=== PATIENT | female | born 1995 | race Caucasian/White ===

== ENCOUNTER → 2022-09-08 | Outpatient (CLI) | payer OTHER, SELFPAY ==
[2022-09-08 10:59] LABS: Absolute Lymphocyte Count 1.88 X10^3/uL (0.83-4.51); Absolute Neutrophil Count 5.3 X10^3/uL (2.0-7.7); Basophil# 0.02 X10^3/uL; Basophil% 0.3 % (0-1); Eosinophil# 0.08 X10^3/uL; Hematocrit 39.6 % (37-47); Hemoglobin 13.7 g/dL (12.0-15.0); Lymphocyte # 1.88 X10^3/ul (0.83-4.51); Lymphocyte % 24.6 % (19-41); Mean Corp Hgb Conc 34.6 g/dL (32-36); Mean Corpuscular Hgb 28.8 pg (27.0-32.0); Mean Corpuscular Volume 83.4 fL (81-99); Mean Platelet Vol. 9.2 fl (6.2-12.0); Monocyte# 0.38 X10^3/uL; NRBC Flagged by Analyzer 0 % (0-5); Neutrophil # 5.25 X10^3/uL (2.7-7.7); Neutrophil % 68.7 % (47-70); Platelet Count 266 K/mm3 (150-450); RBC Distribution Width CV 12.8 % (11.6-14.6); Red Blood Count 4.75 M/mm3 (4.2-5.4); White Blood Count 7.6 K/mm3 (4.4-11.0)
[2022-09-08 11:28] LABS: Glucose Challenge Gest 1H 50g 132 mg/dL (70-140)
[2022-09-08 12:08] LABS: HIV - WCH Non-Reactive (Nonreactive); Hepatitis B Surface Antigen Non-Reactive (Nonreactive); Hepatitis C Antibody Non-Reactive (Nonreactive); Rubella IgG Reactive (Nonreactive); Syphilis Antibodies Non-reactive
[2022-09-09 22:07] LABS: Chlamydia By Nucleic Acid AMP Negative (Negative)
[2022-09-09 23:14] LABS: Gonococcus By Nucleic Acid AMP Negative (Negative)
== END | disposition home or self-care (01) ==
PROVIDERS: Referring Provider Obstetrics & Gynecology; Visit Provider Obstetrics & Gynecology
DX: O09.90 Supervision of high risk pregnancy, unspecified, unspecified trimester (principal)
CPT/HCPCS: 36415; 82950; 85025; 86703; 86762; 86780; 86803; 86850; 86900; 86901; 87086; 87340; 87491; 87591

== ENCOUNTER → 2022-09-20 | Outpatient (CLI) | payer OTHER, SELFPAY ==
[2023-01-02 11:05] LABS: NATERA MAILED SPECIMEN
== END | disposition home or self-care (01) ==
LOC: PAVLAB 11:23
PROVIDERS: Referring Provider Obstetrics & Gynecology; Visit Provider Obstetrics & Gynecology
DX: Z34.81 Encounter for supervision of other normal pregnancy, first trimester (principal)

== ENCOUNTER → 2022-12-14 | Outpatient (CLI) | payer OTHER, SELFPAY | END | disposition home or self-care (01) | PROVIDERS: Referring Provider Advanced Practice Midwife; Visit Provider Advanced Practice Midwife | DX: Z34.90 Encounter for supervision of normal pregnancy, unspecified, unspecified trimester (principal); Z3A.00 Weeks of gestation of pregnancy not specified | CPT/HCPCS: 36415 ==

== ENCOUNTER → 2023-01-14 | Outpatient (CLI) | payer OTHER, SELFPAY ==
[2023-01-14 11:17] LABS: Absolute Lymphocyte Count 1.98 X10^3/uL (0.83-4.51); Absolute Neutrophil Count 7.5 X10^3/uL (2.0-7.7); Basophil# 0.02 X10^3/uL; Basophil% 0.2 % (0-1); Eosinophil# 0.08 X10^3/uL; Eosinophils% 0.8 % (0-5); Hematocrit 40.4 % (37-47); Hemoglobin 13.2 g/dL (12.0-15.0); Lymphocyte # 1.98 X10^3/ul (0.83-4.51); Lymphocyte % 19.6 % (19-41); Mean Corp Hgb Conc 32.7 g/dL (32-36); Mean Corpuscular Hgb 28.1 pg (27.0-32.0); Mean Platelet Vol. 9.5 fl (6.2-12.0); Monocyte# 0.37 X10^3/uL; Monocyte% 3.7 % (0-10); NRBC Flagged by Analyzer 0 % (0-5); Neutrophil # 7.51 X10^3/uL (2.7-7.7); Neutrophil % 74.5 % (47-70); Platelet Count 257 K/mm3 (150-450); RBC Distribution Width CV 13.4 % (11.6-14.6); RBC Distribution Width SD 41.7 fl (35.1-43.9); White Blood Count 10.1 K/mm3 (4.4-11.0)
[2023-01-14 11:38] LABS: Glucose Challenge Gest 1H 50g 160 mg/dL (70-140)
[2023-01-14 12:12] LABS: HIV - WCH Non-Reactive (Nonreactive); Syphilis Antibodies Non-reactive
== END | disposition home or self-care (01) ==
PROVIDERS: Referring Provider Advanced Practice Midwife; Visit Provider Advanced Practice Midwife
DX: O09.90 Supervision of high risk pregnancy, unspecified, unspecified trimester (principal); Z3A.00 Weeks of gestation of pregnancy not specified
CPT/HCPCS: 36415; 82950; 85025; 86703; 86780

== ENCOUNTER 2023-02-01 09:39 | Outpatient (RCR) | payer OTHER, SELFPAY | END 2023-02-07 23:59 | LOC: DC 09:39 | PROVIDERS: Referring Provider Advanced Practice Midwife; Visit Provider Advanced Practice Midwife | DX: Z71.3 Dietary counseling and surveillance (principal); O24.419 Gestational diabetes mellitus in pregnancy, unspecified control; Z3A.00 Weeks of gestation of pregnancy not specified | CPT/HCPCS: 97802 ==

== ENCOUNTER 2023-02-17 10:30 | Outpatient (RCR) | payer OTHER, SELFPAY | END 2023-03-10 23:59 | LOC: DC 10:30 | PROVIDERS: Referring Provider Advanced Practice Midwife; Visit Provider Advanced Practice Midwife | DX: Z71.3 Dietary counseling and surveillance (principal); O24.419 Gestational diabetes mellitus in pregnancy, unspecified control | CPT/HCPCS: 97803 ==

== ENCOUNTER → 2023-03-16 | Outpatient (CLI) | payer OTHER, SELFPAY | END | disposition home or self-care (01) | PROVIDERS: Visit Provider Obstetrics & Gynecology | DX: O09.90 Supervision of high risk pregnancy, unspecified, unspecified trimester (principal); Z3A.00 Weeks of gestation of pregnancy not specified | CPT/HCPCS: 87081 ==

== ENCOUNTER 2023-04-03 19:16 | Inpatient (IN) | payer OTHER, SELFPAY ==
[2023-01-18 07:38] LABS: Glucose GTT-Gestation. Fasting 100 mg/dL (<105)
[2023-01-18 09:12] LABS: Glucose GTT-Gestational 1 Hr 180 mg/dL (<190)
[2023-01-18 09:30] LABS: Glucose GTT-Gestational 2 Hr 139 mg/dL (<165)
[2023-01-18 11:35] LABS: Glucose GTT-Gestational 3 Hr 112 L (<145)
[2023-04-03 19:35] VITALS: TEMP 37.1
[2023-04-03 19:40] VITALS: PULSE 82; O2SAT 98
[2023-04-03 19:42] VITALS: BP 129/73; PULSE 93
[2023-04-03 19:45] VITALS: BMI 41.6
[2023-04-03 19:57] LABS: Absolute Lymphocyte Count 3.08 X10^3/uL (0.83-4.51); Absolute Neutrophil Count 6.6 X10^3/uL (2.0-7.7); Basophil# 0.03 X10^3/uL; Basophil% 0.3 % (0-1); Eosinophil# 0.09 X10^3/uL; Eosinophils% 0.9 % (0-5); Hemoglobin 12.3 g/dL (12.0-15.0); Lymphocyte # 3.08 X10^3/ul (0.83-4.51); Lymphocyte % 29.1 % (19-41); Mean Corp Hgb Conc 33.2 g/dL (32-36); Mean Corpuscular Hgb 27.9 pg (27.0-32.0); Mean Corpuscular Volume 83.9 fL (81-99); Mean Platelet Vol. 9.8 fl (6.2-12.0); Monocyte# 0.74 X10^3/uL; NRBC Flagged by Analyzer 0 % (0-5); Neutrophil # 6.58 X10^3/uL (2.7-7.7); Neutrophil % 62.2 % (47-70); Platelet Count 254 K/mm3 (150-450); RBC Distribution Width CV 13.1 % (11.6-14.6); RBC Distribution Width SD 39.6 fl (35.1-43.9); Red Blood Count 4.41 M/mm3 (4.2-5.4); White Blood Count 10.6 K/mm3 (4.4-11.0)
[2023-04-03 20:31] LABS: Syphilis Antibodies Non-reactive
[2023-04-03 21:03] LABS: Bedside Glucose 90 mg/dL (74-106)
[2023-04-03] MEDS: miSOPROStol 25 MCG TABLET PO (21:14)
[2023-04-03] MEDS: metFORMIN HCl 1,000 MG Tablet 1000 MG PO (21:14)
[2023-04-03 21:44] LABS: Bedside Glucose 92 mg/dL (74-106)
[2023-04-03 23:17] VITALS: TEMP 36.6; O2SAT 98
[2023-04-03 23:18] VITALS: BP 105/51; PULSE 66
[2023-04-04] VITALS (41 sets, daily range): BP systolic 99–148; BP diastolic 50–84; PULSE 65–191; RESP 16; TEMP 36.3–37.2; O2SAT 78–100
[2023-04-04] MEDS: miSOPROStol 50 MCG TABLET PO ×2 (01:12→07:04)
[2023-04-04 01:45] LABS: Bedside Glucose 84 mg/dL (74-106)
[2023-04-04 05:45] LABS: Bedside Glucose 71 mg/dL (74-106)
--- NOTE | 2023-04-04 08:19 | HP.PCM.OB_ITS ---
HPI - General General Date of Admission: 04/03/23 HPI Narrative NEFTALI GRECO, is a 28 F who presents at 39 weeks 1 day for IOL for metformin controlled GDM. course otherwise overall uncomplicated. growth scan on 03/18/2023 demonstrated EFW 2783g 35% with glucose in good control following. Maternal Data Information DENA Calculator Estimated Delivery Date Method Current WG Current Estimate 04/10/23 LMP (Certain) 39w 1d Final DENA: 04/10/23 Final DENA Source: LMP Gestational age: 39.1 PFSH PFSH Medical History Anxiety Home Medications prenat.vits,shaina,lrv-szml-fcjka 1 tab PO DAILY 09/01/22 [History Last Taken 03/30/23] blood sugar diagnostic (Blood Glucose Test strips) #120 ea 01/19/23 [Rx Last Taken Unknown] blood-glucose meter #1 ea 01/19/23 [Rx Last Taken Unknown] lancets #200 ea 01/19/23 [Rx Last Taken Unknown] metformin 1,000 mg tablet 1,000 mg PO DAILY Gestational 02/24/23 [History Last Taken 04/02/23] Adacel(Tdap Adolesn/Adult)(PF) 2 Lf-(2.5-5-3-5)-5 Lf/0.5 mL IM syringe (diph,pertuss(acel),tet vac(PF)) 0.5 ml IM ONCE #0.5 mL 03/03/23 [Clinic Last Taken Unknown] metformin 500 mg tablet 500 mg PO ONCE Gestation diabetes 03/07/23 [History Last Taken Unknown] Allergy/AdvReac Type Severity Reaction Status Date / Time No Known Allergies Allergy Verified 04/03/23 20:12 Family History Father Heart disease Hypertension Diabetes type 2 Mother Cancer, Onset Age: 58 uterine genetic screening done Surgical History History of tonsillectomy S/P foot surgery, left Social History adopted: No household members: spouse housing: house current occupational status: employed 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 pets and animals: Yes ( doing litter box) pets and animals: cat(s) and dog(s) history of recent travel: No sexually active: Yes Smoking Status: Never smoker Electronic Cigarette Use: not used second hand exposure: No alcohol intake: never substance use type: does not use well-balanced diet: daily or most days caffeine: Yes Type: coffee Number of servings: 2 eating out: 1-3 times/week seatbelt use: always do you feel safe at home: Yes 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 History 1 Elective abortions Hx Para 0 Spontaneous abortions Hx # Term Pregnancies Ectopic pregnancies Hx # Pregnancies Multiple births # of living children Visit Details Expected Delivery Route/Plan Labor Preferences- CB/BF classes: [] labor support person: [] labor intervention preferences: [] pain management options preferred: [] cut cord/dad catch: [] : [] PP control planned: [] discussed possible routes of delivery and associated risks: [] special requests: [] Plans Covid status: discussed Flu vaccine: discussed Tdap vaccine: [] Rhogam: [] LARC form signed: done Problem list reviewed and updated with the most current plan of care details and appropriate orders placed. Relevant counseling for the gestational age provided. Continue routine care and follow up unless otherwise noted in visit notes/problem list details OB Flowsheet Initial Weight: Not Recorded Date -?-?-?-?-?-?-?-?-?-?-?-?- EGA Weight BP Urine Prot -?-?-?--?-?-?-?-?-?-?-?-?- Glucose FHR FuHt Pres Dilation -?-?-?-?-?-?-?-?-?--?-?-?- Effaced St Visit Note 09/08/22 -?-?-?-?-?-?-?-?-?-?-?-?- 9w 3d 261 lb 6 oz 135/78 -?-?-?-?-?-?-?-?-?-?-?-?- 185 -?-?-?-?-?-?-?-?-?-?-?-?- JV- single live IUP measuring 9 weeks 5 days and consistent with LMP. Desires NIPT. needs early glucola. 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 10/04/22 -?-?-?-?-?-?-?-?-?-?-?-?- 13w 1d 256 lb 4 oz 103/61 Nega tive -?-?-?-?-?-?-?-?-?-?-?-?- Negative 170 -?-?-?-?-?-?-?-?-?-?-?-?- SM- no vb crampi ng 11/03/22 -?-?-?-?-?-?-?-?-?-?-?-?- 17w 3d 257 lb 112/66 Negative -?-?-?-?-?-?-?-?-?-?-?-?- Negative 166 -?-?-?-?-?-?-?-?-?-?-?-?- MH-no VB. US is next week. Very tearful:mom with recent dx of bone mets from prior uterine CA. Admitted [facility]. 11/16/22 -?-?-?-?-?-?-?-?-?-?-?-?- 19w 2d 254 lb 8 oz 113/75 Trac e -?-?-?-?-?-?-?-?-?-?-?-?- Negative 160 -?-?-?-?-?-?-?-?-?-?-?-?- KW-possible flut ters. no cramping/vb. Anatomy US today KW-possible flutters. no scrap yard worker mping/vb. Anatomy US today. doing ok with moms Dx of cancer. still tearful but overall doing ok. 11/30/22 -?-?-?-?-?-?-?-?-?-?-?-?- 21w 2d 251 lb 2 oz 98/73 Trac e -?-?-?-?-?-?-?-?-?-?-?-?- Negative 125 21 -?-?-?-?-?-?-?-?-?-?-?-?- kw- flutters. no cramping/vb. follow up u/s completed today. discussed AFP. undecided. mom passed last week from uterine CA. follow up in 2 weeks to check in 12/14/22 -?-?-?-?-?-?-?-?-?--?-?-?- 23w 2d 252 lb 8 oz 106/74 -?-?-?-?-?-?-?-?-?-?-?-?- 150 -?-?-?-?-?-?-?-?-?-?-?-?- KW-+FM. No cramp ing/vb/lof. doing well emotionally. 28 week labs discussed. AFP ordered. 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 BS reviewed. Fast[place] elevated(88-114). PP under 120. Consult with JV-refer to Dr. Muñoz. Tdap and Larc done KW-+FM, no lof/vb/ctx. BS re viewed. [place] elevated(88-114). PP under 120. C onsult with JV-refer to Dr. Muñoz. Tdap next visit (office out today) Larc done. 32 & 36 week growth US ordered 02/11/23 -?-?-?-?-?-?-?-?-?-?-?-?- 31w 5d 257 lb 6.4 oz 106/70 Ne gative -?-?-?-?-?-?-?-?-?-?-?-?- Negative 135 -?-?-?-?-?-?-?-?-?-?-?-?- started metformi n 500mg tuesday for fasting 96-97. LC-started metformin 500mg m onday for fasting 96-97. LC-started metformin 500mg m onday for fasting 96-97. taking pp 1-2 times a day working with cargo services coordinator. reactive nst today. 02/16/23 -?-?-?-?-?-?-?-?-?-?-?-?- 32w 3d 258 lb 117/80 Negative -?-?-?-?-?-?-?-?-?-?-?-?- Negative 150 -?-?-?-?-?-?-?-?-?-?-?-?- JV- nst only nimisha ctive. wants to go to [place] for bpps if possible with mfm. on metformin 1000 hs 02/24/23 -?-?-?-?-?-?-?-?-?-?-?-?- 33w 4d 262 lb 6 oz 116/75 Nega tive -?-?-?-?-?-?-?-?-?-?-?-?- Negative 140 -?-?-?-?-?-?-?-?-?-?-?-?- SM- no vb lof go od fm no regular ctx discussed twice weekly testing, 02/28/23 -?-?-?-?-?-?-?-?-?-?-?-?- 34w 1d 261 lb 8 oz 122/74 Nega tive -?-?-?-?-?-?-?-?-?-?-?-?- Negative 150 -?-?-?-?-?-?-?-?-?-?-?-?- MH-NST only reac tive 03/07/23 -?-?--?-?-?-?-?-?-?-?-?-?- 35w 1d 264 lb 6 oz 127/70 Nega tive -?-?-?-?-?-?-?-?-?-?-?-?- Negative 150 -?-?-?-?-?-?-?-?-?-?-?-?- MH-NST only reac tive 03/10/23 -?-?-?-?-?-?-?-?-?-?-?-?- 35w 4d 262 lb 8 oz 122/80 -?-?-?-?-?-?-?-?-?-?-?-?- 150 35 -?-?-?-?-?-?-?-?-?-?-?-?- JV- nst reactive . fasting glucose levels are 80's-90's on metformin. 2 hr pp normal. plan 39 week IOL. JV- nst reactive. fasting gl ucose levels are 80's-90's on metformin. 2 hr pp normal. plan 39 week IOL. growth scan next week 03/16/23 -?-?-?-?-?-?-?-?-?-?-?-?- 36w 3d 265 lb 4 oz 127/78 Nega tive -?-?-?-?-?-?-?-?-?-?-?-?- Negative 150 36 Cephalic 0 -?-?-?-?-?-?-?-?-?-?-?-?- 50 -3 JV- reacti ve nst. glucose log reviewed and normal. gbs collected. 03/18/23 -?-?-?-?-?-?-?-?-?-?-?-?- 36w 5d 266 lb 4 oz 101/59 Nega tive -?-?-?-?-?-?-?-?-?-?-?-?- Negative 130 -?-?-?-?-?-?-?-?-?-?-?-?- LC- reactive nst . glucose log reviewed. 03/21/23 -?-?-?-?-?-?-?-?-?-?-?-?- 37w 1d 266 lb 2 oz 110/69 Nega tive -?-?-?-?-?-?-?-?-?-?-?-?- Negative 135 -?-?-?-?-?-?-?-?-?-?-?-?- KW-NST only. nimisha ctive 03/24/23 -?-?-?-?-?-?-?-?-?-?-?-?- 37w 4d 263 lb 4 oz 126/77 -?-?-?-?-?-?-?-?-?-?-?-?- 135 -?-?-?-?-?-?-?-?-?-?-?-?- KW-no vb/lof/reg ular contractions. Reactive NST today. IOL at 39 weeks for GDM 03/28/23 -?-?-?-?-?-?-?-?-?-?-?-?- 38w 1d 265 lb 6 oz 124/82 Nega tive -?-?-?-?-?-?-?-?-?-?--?-?- Negative 130 -?-?-?-?-?-?-?-?-?-?-?-?- SM- no vb lof go od fm no regular ctxBS controlled 03/31/23 -?-?-?-?-?-?-?-?-?-?-?-?- 38w 4d 265 lb 6 oz 128/69 Nega tive -?-?-?-?-?-?-?-?-?-?-?-?- Negative 145 Cephalic 0 -?-?-?-?-?-?-?-?-?-?-?-?- 50 -3 JV- cx is open externally but still closed at the internal os. plan for cytotec IOL tuesday. NST reactive. NST FHR Rate Baby B Baseline: 140 Variability:: Moderate Accelerations:: 15 x 15 Decelerations:: None NST Reactive:: Yes FHR Category:: Category I Uterine Activity:: irregular Vital Signs Vital Signs Vital Signs: 04/03/23 19:40 04/03/23 19:40 04/03/23 19:42 Temperature Temperature Source Pulse Rate 82 Blood Pressure 129/73 H BP Systolic 129 BP Diastolic 73 Pulse Ox 98 04/03/23 19:42 04/03/23 19:35 04/03/23 19:35 Temperature 98.7 F Temperature Source Temporal Pulse Rate 93 Blood Pressure BP Systolic BP Diastolic Pulse Ox 04/03/23 23:17 04/03/23 23:18 04/03/23 23:18 Temperature Temperature Source Temporal Pulse Rate 66 Blood Pressure 105/51 L BP Systolic 105 BP Diastolic 51 Pulse Ox 04/03/23 23:17 04/03/23 23:17 04/04/23 01:07 Temperature 97.9 F Temperature Source Temporal Pulse Rate Blood Pressure BP Systolic BP Diastolic Pulse Ox 98 04/04/23 01:08 04/04/23 01:08 04/04/23 01:07 Temperature Temperature Source Pulse Rate 71 Blood Pressure 126/60 H BP Systolic 126 BP Diastolic 60 Pulse Ox 98 04/04/23 01:07 04/04/23 05:14 04/04/23 05:14 Temperature 98.9 F Temperature Source Pulse Rate 80 Blood Pressure 132/65 H BP Systolic 132 BP Diastolic 65 Pulse Ox 04/04/23 05:14 04/04/23 05:14 04/04/23 05:14 Temperature 97.6 F L Temperature Source Temporal Pulse Rate Blood Pressure BP Systolic BP Diastolic Pulse Ox 100 04/04/23 07:18 04/04/23 07:18 04/04/23 07:19 Temperature Temperature Source Pulse Rate 191 H Blood Pressure 120/70 BP Systolic 120 BP Diastolic 70 Pulse Ox 80 04/04/23 07:19 04/04/23 07:18 04/04/23 07:18 Temperature Temperature Source Temporal Pulse Rate 65 Blood Pressure BP Systolic BP Diastolic Pulse Ox 99 04/04/23 07:18 Temperature 97.4 F L Temperature Source Pulse Rate Blood Pressure BP Systolic BP Diastolic Pulse Ox Weight Weight: 265 lb 12.8 oz Body Mass Index (BMI) 41.6 Physical Exam Const alert, oriented x3 and no apparent distress General Appearance: cooperative, comfortable and well kempt Orientation / Consciousness: awake and oriented to person Exam Limitations: no limitations HEENT normocephalic Neck full ROM Chest inspection of chest normal Resp normal respiratory effort, normal air movement and no retractions Effort and Inspection: able to speak in complete sentences and symmetric chest movement Cardio regular rate Peripheral Pulses: pulses 2+ throughout GI normal to inspection, nondistended, normoactive bowel sounds Inspection: gravid no CVA tenderness and appearance of the vagina normal External Female Exam: normal appearance of the urethra; Negative for external lesion OB / External & Speculum: external exam normal Manual OB Exam: estimated gestational size appropriate and presentation cephalic Uterus Palpation: Negative for uterus tender Extremity normal to inspection Skin no rashes or lesions noted Neuro deep tendon reflexes 2+ bilaterally and gait normal Motor Exam: strength 5/5 throughout and clonus absent Psych Activity / Motor Behavior: appropriate eye contact Speech: normal speech Labs Labs Labs: Blood Type A POSITIVE Antibody Screen NEGATIVE Hct 37.0 % (37-47) Hgb 12.3 g/dL (12.0-15.0) Syphilis Total Ab Non-reactive Rubella IgG Antibody Reactive (Nonreactive) Hep Bs Antigen Non-Reactive (Nonreactive) Chlamydia DNA ([place]) Negative (Negative) Neisseria gonorrhoeae DNA ([place]) Negative (Negative) HIV 1&2 Antibody Non-Reactive (Nonreactive) Glucose 1 Hr 50 gm 160 mg/dL (70-140) H Miscellaneous Test Assessment & Plan (1) Encounter for induction of labor: COMMENT: cytotec for cervical ripening. plan for [place] bulb and pitocin (2) Obesity affecting : QUALIFIERS: Trimester: third trimester Obesity type affecting : severe obesity due to excess calories Qualified Code(s): O99.213 - Obesity complicating , third trimester; E66.01 - Morbid (severe) obe sity due to excess calories COMMENT: normal 1 hour BMI 40 encouraged healthy weight gain (3) Asymptomatic varicose veins: COMMENT: plan for waist high compression stockings (4) Gestational diabetes mellitus (GDM): QUALIFIERS: Gestational diabetes mellitus control: unspecified Trimester: third trimester Qualified Code(s): O24.419 - Gestational diabetes mellitus in , unspecified control COMMENT: metformin, IOL 39. NSTs twice weekly starting at 32 weeks, US at 32 and 36 weeks 32 and 36 wk nl growth PLAN: monitor glucose per protocol. hold metformin dose 04/04 with anticipation of clear liquid status and glucose of 71. (5) Supervision of high risk , antepartum: COMMENT: PRR DENA 04/10/23 surprise Farshad (6) : QUALIFIERS: Weeks of gestation: 38 weeks Qualified Code(s): Z3A.38 - 38 weeks gestation of COMMENT: GBS neg, afp neg, NIPT low risk, discussed carrier screening, anatomy nl PLAN: Plan Patient presents for IOL with cytotec 50mcg q6. discussed plan for [place] bulb and Pitocin once dilated enough. cat 1 tracing. reassuring maternal and status. Pain management: plans epidural. GBS negative. . Management of any complications: [none] I have reviewed the [facility] and made any clinically relevant updates. Dr. Woods updated on admission, exam and poc and agrees with co-management for GDM and IOL.
[2023-04-04 09:10] LABS: Bedside Glucose 77 mg/dL (74-106)
[2023-04-04] MEDS: LACTATED RINGERS 500 ML 999 ML IV ×3 (12:19→21:36)
[2023-04-04] MEDS: Lactated Ringers 1,000 ML 50 ML IV (12:19)
[2023-04-04] MEDS: Oxytocin 15 Units/NS 250ml 15 UNITS/250 ML IV.SOLN 2 UNITS IV (13:35)
[2023-04-04 13:39] LABS: Bedside Glucose 99 mg/dL (74-106)
[2023-04-04 17:20] LABS: Bedside Glucose 75 mg/dL (74-106)
[2023-04-04] MEDS: 0.9% Normal Saline Single 100 ML IV.SOLN. INTRA-UTER (18:04)
[2023-04-04] MEDS: fentaNYL 100 MCG/2 ML Ampul IV (18:42)
[2023-04-04] MEDS: fentaNYL-bupivacaine (epidural) 100 ML BAG EPIDURAL (20:40)
[2023-04-04] MEDS: Lactated Ringers 1,000 ML 200 ML IV (21:34)
--- NOTE | 2023-04-04 21:44 | PCM.PN.BLA ---
Progress Note arom clear fluid 4-5/60/-3 current tracing: FHT: 150 Min variability reactive recurrent variable decelerations category II tracing [place]: q 2-3 Contractions reviewed tracing abnormalities since last note: IVFs position changes, pitocin turned off, IUPC placed and fse placed. FHT decels resolced. now Car I 140-150 mod lalo pos accel A/P: continue exp management will eventually restart pitocin
[2023-04-04 21:52] LABS: Bedside Glucose 91 mg/dL (74-106)
[2023-04-04 23:05] LABS: Bedside Glucose 69 mg/dL (74-106)
[2023-04-04 23:54] LABS: Bedside Glucose 80 mg/dL (74-106)
[2023-04-05] VITALS (37 sets, daily range): BP systolic 113–137; BP diastolic 53–81; PULSE 74–103; RESP 16; TEMP 36.2–37.3; O2SAT 85–100
[2023-04-05 00:55] LABS: Bedside Glucose 81 mg/dL (74-106)
[2023-04-05] MEDS: fentaNYL-bupivacaine (epidural) 100 ML BAG EPIDURAL ×3 (00:59→10:25)
[2023-04-05 02:08] LABS: Bedside Glucose 74 mg/dL (74-106)
[2023-04-05 02:59] LABS: Bedside Glucose 84 mg/dL (74-106)
[2023-04-05 03:58] LABS: Bedside Glucose 82 mg/dL (74-106)
[2023-04-05] MEDS: Lactated Ringers 1,000 ML 200 ML IV ×3 (04:23→12:45)
[2023-04-05 04:55] LABS: Bedside Glucose 78 mg/dL (74-106)
[2023-04-05] MEDS: Ondansetron 4 MG/2 ML Vial IV (05:47)
[2023-04-05] MEDS: 0.9% Saline Lock 10 ML Syringe IV (05:48)
[2023-04-05 05:57] LABS: Bedside Glucose 72 mg/dL (74-106)
[2023-04-05 07:00] LABS: Bedside Glucose 78 mg/dL (74-106)
--- NOTE | 2023-04-05 07:12 | PCM.PN.OB ---
Subjective Subjective Comfortable with contractions current tracing: FHT: 130 Moderate variability reactive occasional early decelerations category I tracing [place]: Contractions SVE 6/70/0 per SM at 0700 A/P: Continue pitocin titration per policy continue position changes continue to monitor GDM per policy Objective Data Objective Data Vital Signs: Vital Signs Temp Pulse Resp BP Pulse Ox O2 Del Method 97.8 F 88 16 115/66 96 Room Air 04/05/23 05:26 04/05/23 05:26 04/04/23 22:44 04/05/23 05:26 04/05/23 05:25 04/04/23 22:44 Oxygen Delivery Method Room Air Weight: 265 lb 12.8 oz Body Mass Index (BMI) 41.6 Intake & Output: Intake and Output for Last 24 Hours 04/03/23 04/04/23 04/05/23 23:59 23:59 23:59 Intake Total 200 / 200 2207.83 / 2207.83 1016.03 / 1016.03 Output Total 1000 / 1000 Balance 200 / 200 1207.83 / 1207.83 1016.03 / 1016.03 Lab / Micro Data 04/03/23 19:35 Labs: Laboratory Results - last 24 hr 04/04/23 08:50: POC Glucose 77 04/04/23 13:17: POC Glucose 99 04/04/23 17:01: POC Glucose 75 04/04/23 21:30: POC Glucose 91 04/04/23 22:40: POC Glucose 69 L 04/04/23 23:31: POC Glucose 80 04/05/23 00:33: POC Glucose 81 04/05/23 01:35: POC Glucose 74 04/05/23 02:36: POC Glucose 84 04/05/23 03:36: POC Glucose 82 04/05/23 04:32: POC Glucose 78 04/05/23 05:25: POC Glucose 72 L 04/05/23 06:35: POC Glucose 78 Assessment & Plan (1) Encounter for induction of labor: COMMENT: cytotec for cervical ripening. plan for [place] bulb and pitocin (2) Gestational diabetes mellitus (GDM): QUALIFIERS: Gestational diabetes mellitus control: unspecified Trimester: third trimester Qualified Code(s): O24.419 - Gestational diabetes mellitus in , unspecified control COMMENT: metformin, IOL 39. NSTs twice weekly starting at 32 weeks, US at 32 and 36 weeks 32 and 36 wk nl growth (3) Stressful life event affecting family: COMMENT: Her mother passed from uterine cancer mets to bone 11/23. Enc counseling. RTO 2 wk (4) Asymptomatic varicose veins: COMMENT: plan for waist high compression stockings (5) Supervision of high risk , antepartum: COMMENT: PRR DENA 04/10/23 surprise Farshad (6) Obesity affecting : QUALIFIERS: Trimester: third trimester Obesity type affecting : severe obesity due to excess calories Qualified Code(s): O99.213 - Obesity complicating , third trimester; E66.01 - Morbid (severe) obesity due to excess calories COMMENT: normal 1 hour BMI 40 encouraged healthy weight gain (7) History of anxiety: COMMENT: counseling encouraged. not currently on medication:declines today (8) : QUALIFIERS: Weeks of gestation: 38 weeks Qualified Code(s): Z3A.38 - 38 weeks gestation of COMMENT: GBS neg, afp neg, NIPT low risk, discussed carrier screening, anatomy nl Charges/Coding Multi Select Codes Urinary/Genital Urinary/Genital CPT Codes: No Charge
[2023-04-05 07:59] LABS: Bedside Glucose 87 mg/dL (74-106)
[2023-04-05 09:03] LABS: Bedside Glucose 77 mg/dL (74-106)
[2023-04-05 09:44] LABS: Bedside Glucose 75 mg/dL (74-106)
[2023-04-05 11:11] LABS: Bedside Glucose 65 mg/dL (74-106)
[2023-04-05 12:14] LABS: Bedside Glucose 86 mg/dL (74-106)
[2023-04-05 13:05] LABS: Bedside Glucose 87 mg/dL (74-106)
--- NOTE | 2023-04-05 13:10 | PN.OBGYN_ITS ---
Subjective Subjective COmfortable with epidural current tracing: FHT: Moderate variability, with periods of minimal variability Reactive, occasional late and early decelerations category II tracing [place]: 2-4 minute Contractions. MVUs 100-150 SVE: reviewed tracing abnormalities since last note: Dr Rosenthal aware of FHT and SVE A/P: Continue pitocin titraton per policy continue position changes Dr Rosenthal to reassess SVE after last scheduled surgery around 1430. Objective Data Objective Data Vital Signs: Vital Signs Temp Pulse Resp BP Pulse Ox O2 Del Method 99.2 F H 83 16 116/68 100 Room Air 04/05/23 12:35 04/05/23 12:36 04/04/23 22:44 04/05/23 12:36 04/05/23 12:36 04/04/23 22:44 Oxygen Delivery Method Room Air Weight: 265 lb 12.8 oz Body Mass Index (BMI) 41.6 Intake & Output: Intake and Output for Last 24 Hours 04/03/23 04/04/23 04/05/23 23:59 23:59 23:59 Intake Total 200 / 200 2207.83 / 2207.83 3092.39 / 3092.39 Output Total 1000 / 1000 Balance 200 / 200 1207.83 / 1207.83 3092.39 / 3092.39 Lab / Micro Data 04/03/23 19:35 Labs: Laboratory Results - last 24 hr 04/04/23 13:17: POC Glucose 99 04/04/23 17:01: POC Glucose 75 04/04/23 21:30: POC Glucose 91 04/04/23 22:40: POC Glucose 69 L 04/04/23 23:31: POC Glucose 80 04/05/23 00:33: POC Glucose 81 04/05/23 01:35: POC Glucose 74 04/05/23 02:36: POC Glucose 84 04/05/23 03:36: POC Glucose 82 04/05/23 04:32: POC Glucose 78 04/05/23 05:25: POC Glucose 72 L 04/05/23 06:35: POC Glucose 78 04/05/23 07:35: POC Glucose 87 04/05/23 08:23: POC Glucose 77 04/05/23 09:21: POC Glucose 75 04/05/23 10:49: POC Glucose 65 L 04/05/23 11:49: POC Glucose 86 04/05/23 12:40: POC Glucose 87 Assessment & Plan (1) Encounter for induction of labor: COMMENT: cytotec for cervical ripening. plan for [place] bulb and pitocin (2) Gestational diabetes mellitus (GDM): QUALIFIERS: Gestational diabetes mellitus control: unspecified Trimester: third trimester Qualified Code(s): O24.419 - Gestational diabetes mellitus in , unspecified control COMMENT: metformin, IOL 39. NSTs twice weekly starting at 32 weeks, US at 32 and 36 weeks 32 and 36 wk nl growth (3) Stressful life event affecting family: COMMENT: Her mother passed from uterine cancer mets to bone 11/23. Enc counseling. RTO 2 wk (4) Asymptomatic varicose veins: COMMENT: plan for waist high compression stockings (5) Supervision of high risk , antepartum: COMMENT: PRR DENA 04/10/23 surprise Farshad (6) Obesity affecting : QUALIFIERS: Trimester: third trimester Obesity type affecting : severe obesity due to excess calories Qualified Code(s): O99.213 - Obesity complicating , third trimester; E66.01 - Morbid (severe) obesity due to excess calories COMMENT: normal 1 hour BMI 40 encouraged healthy weight gain (7) History of anxiety: COMMENT: counseling encouraged. not currently on medication:declines today (8) : QUALIFIERS: Weeks of gestation: 38 weeks Qualified Code(s): Z3A.38 - 38 weeks gestation of COMMENT: GBS neg, afp neg, NIPT low risk, discussed carrier screening, anatomy nl Charges/Coding Multi Select Codes Urinary/Genital Urinary/Genital CPT Codes: No Charge
[2023-04-05 14:13] LABS: Bedside Glucose 74 mg/dL (74-106)
[2023-04-05] MEDS: LACTATED RINGERS 500 ML 999 ML IV (14:30)
--- NOTE | 2023-04-05 16:43 | OP.PCM_ITS ---
Assessment & Plan (1) Encounter for induction of labor: COMMENT: cytotec for cervical ripening. plan for reno bulb and pitocin (2) Gestational diabetes mellitus (GDM): QUALIFIERS: Gestational diabetes mellitus control: unspecified Trimester: third trimester Qualified Code(s): O24.419 - Gestational diabetes mellitus in , unspecified control COMMENT: metformin, IOL 39. NSTs twice weekly starting at 32 weeks, US at 32 and 36 weeks 32 and 36 wk nl growth (3) Stressful life event affecting family: COMMENT: Her mother passed from uterine cancer mets to bone 11/23. Enc counseling. RTO 2 wk (4) Asymptomatic varicose veins: COMMENT: plan for waist high compression stockings (5) Supervision of high risk , antepartum: COMMENT: PRR DENA 04/10/23 surprise Farshad (6) Obesity affecting : QUALIFIERS: Trimester: third trimester Obesity type affecting : severe obesity due to excess calories Qualified Code(s): O99.213 - Obesity complicating , third trimester; E66.01 - Morbid (severe) obesity due to excess calories COMMENT: normal 1 hour BMI 40 encouraged healthy weight gain (7) History of anxiety: COMMENT: counseling encouraged. not currently on medication:declines today (8) : QUALIFIERS: Weeks of gestation: 38 weeks Qualified Code(s): Z3A.38 - 38 weeks gestation of COMMENT: GBS neg, afp neg, NIPT low risk, discussed carrier screening, anatomy nl Maternal Data Information DENA Calculator Estimated Delivery Date Method Current WG Current Estimate 04/10/23 LMP (Certain) 39w 2d Final DENA: 04/10/23 Gestational age: 39 weeks 2 days Vaginal Delivery Maternal Presentation Maternal Presentation: Medically Indicated Induction Type of Induction: Pitocin, [place] Bulb, Amniotomy and Cytotec Medical Reason for Induction: - (gestational diabetes ) Operative Information Date of Procedure: 04/05/23 Pre-Operative Diagnosis: 28 y/o @ 39 weeks 2 days, gestational diabetes on medication Post-Operative Diagnosis: 28 y/o @ 39 weeks 2 days, gestational diabetes on medication Surgery / Procedure Performed: Spontaneous Vaginal Delivery Type of Anesthesia: Epidural Drain: [place] to straight drain Estimated Blood Loss: 50cc Findings Description of Procedure: Patient began pushing and delivered the head in the JODIE presentation. The head was delivered atraumatically. The anterior and posterior shoulders delivered without complication followed by the rest of the infant and the was placed on the maternal abdomen. Delayed cord clamping was employed for approximately 60 seconds. Cord was clamped and cut and gentle traction was applied to the cord and the placenta delivered spontaneously immediately following it was noted to be intact with three-vessel cord. The perineum and vagina were inspected and noted to have a small 1st degree laceration. EBL was 50 cc. Patient and infant tolerated delivery well. Presentation: Vertex Amniotic Membrane Rupture Type: Artificial Amniotic Fluid Description: Clear Placental Delivery Description: Spontaneous Placenta Disposition: [facility] Cord Vessel Description: 3 Vessels Cord Entanglement: None Infant A Gender: Male (1 minute): 8 (5 minute): 9 Delayed Cord Clamping: Yes Post Vaginal Delivery Medications Given After Delivery: IV Pitocin Episiotomy Description: None Laceration: 1st degree Multi Select Codes Urinary/Genital Urinary/Genital CPT Codes: 98227 Vaginal Delivery [facility]
[2023-04-05] MEDS: Oxytocin 15 Units/NS 250ml 15 UNITS/250 ML IV.SOLN 83 UNITS IV (17:11)
[2023-04-05 18:07] LABS: Bedside Glucose 90 mg/dL (74-106)
[2023-04-05 18:07] LABS: Bedside Glucose 83 mg/dL (74-106)
[2023-04-05 18:08] LABS: Bedside Glucose 66 mg/dL (74-106)
[2023-04-05] MEDS: metFORMIN HCl 500 MG Tablet PO (20:51)
[2023-04-05] MEDS: Naproxen 500 MG Tablet PO (21:30)
[2023-04-06] VITALS (14 sets, daily range): BP systolic 102–143; BP diastolic 54–74; PULSE 68–93; RESP 16–18; TEMP 36.1–36.6; O2SAT 97–98
[2023-04-06] MEDS: Acetaminophen 500 MG Tablet 1000 MG PO ×2 (03:20→22:25)
[2023-04-06 05:31] LABS: Bedside Glucose 74 mg/dL (74-106)
--- NOTE | 2023-04-06 08:03 | PCM.PN.OB ---
Subjective Subjective Patient doing well without complaints. Tolerating PO. Ambulating and voiding without difficulty. Feeding well. Denies chest pain, shortness of breath, calf pain/swelling, fevers, chills, lightheadedness. Objective Data Objective Data Vital Signs: Vital Signs Temp Pulse Resp BP Pulse Ox O2 Del Method 97.6 F L 83 16 122/70 H 98 Room Air 04/06/23 07:49 04/06/23 07:49 04/06/23 07:49 04/06/23 07:49 04/06/23 07:49 04/06/23 07:49 Oxygen Delivery Method Room Air Weight: 265 lb 12.8 oz Body Mass Index (BMI) 41.6 Intake & Output: Intake and Output for Last 24 Hours 04/04/23 04/05/23 04/06/23 23:59 23:59 23:59 Intake Total 2207.83 / 2207.83 3877.59 / 3877.59 1000 / 1000 Output Total 1000 / 1000 1750 / 2250 500 / 500 Balance 1207.83 / 1207.83 2127.59 / 1627.59 500 / 500 Lab / Micro Data 04/03/23 19:35 Labs: Laboratory Results - last 24 hr 04/05/23 08:23: POC Glucose 77 04/05/23 09:21: POC Glucose 75 04/05/23 10:49: POC Glucose 65 L 04/05/23 11:49: POC Glucose 86 04/05/23 12:40: POC Glucose 87 04/05/23 13:41: POC Glucose 74 04/05/23 14:34: POC Glucose 66 L 04/05/23 14:50: POC Glucose 83 04/05/23 15:37: POC Glucose 90 04/06/23 05:09: POC Glucose 74 ROS Constitutional Constitutional: Denies chills, fatigue, fever(s), poor appetite or weakness Eyes Eyes: Denies blurry vision, change in vision, seeing flashes or spots in vision ENT HEENT: Denies dizziness, headache(s), loss taste/smell or sore throat Cardiovascular Cardiovascular: Denies chest pain, dizziness, dyspnea, irregular heart rhythm, palpitations or rapid heart rate Respiratory/Chest Respiratory/Chest: Denies chest tightness, cough, dyspnea or breast pain Gastrointestinal Gastrointestinal: Denies abdominal pain, constipation or vomiting Genitourinary Genitourinary: Denies dysuria or flank pain Musculoskeletal Musculoskeletal: Denies difficulty walking, joint pain, limited range of motion or numbness Neurologic Neurologic: Denies abnormal movements, abnormal speech, dizziness, numbness, seizure-like activity or syncope Psychiatric Psychiatric: Denies anxiety, behavioral changes, change in appetite, confusion, depression or suicidal thoughts Physical Exam Const alert, oriented x3 and no apparent distress General Appearance: cooperative and comfortable Resp normal respiratory effort Cardio regular rate GI normal to inspection, nondistended, normoactive bowel sounds GI Narrative: uterus is firm below umbilicus Palpation: soft Back/Spine no CVA tenderness and thoraco-lumbar ROM normal Extremity normal to inspection, no clubbing, cyanosis or edema, no calf tenderness and no pedal edema Psych mental status grossly normal, thought process normal, cooperative, affect normal, speech normal, activity/motor behavior normal, denies homicidal ideation and denies suicidal ideation Assessment & Plan (1) Vaginal delivery: (2) Gestational diabetes mellitus (GDM): QUALIFIERS: Gestational diabetes mellitus control: unspecified Trimester: third trimester Qualified Code(s): O24.419 - Gestational diabetes mellitus in , unspecified control COMMENT: metformin, IOL 39. NSTs twice weekly starting at 32 weeks, US at 32 and 36 weeks 32 and 36 wk nl growth (3) Stressful life event affecting family: COMMENT: Her mother passed from uterine cancer mets to bone 11/23. Enc counseling. RTO 2 wk (4) History of anxiety: COMMENT: counseling encouraged. not currently on medication:declines today PLAN: Plan s/p PPD #1 1. routine post delivery care 2. breast feeding- support given 3. rh positive 4. rubella immune 5. continue metformin 500 bid until follow up with dr myers in 6 weeks
[2023-04-06] MEDS: metFORMIN HCl 500 MG Tablet PO ×2 (10:32→18:13)
[2023-04-06 12:42] LABS: Bedside Glucose 132 mg/dL (74-106)
--- NOTE | 2023-04-06 15:03 | NURSING ---
student charting reviewed that is used for educational and learning purposes
[2023-04-06] MEDS: Naproxen 500 MG Tablet PO (16:13)
[2023-04-06] MEDS: Prenatal Vits Tablet 1 TABLET PO (16:13)
[2023-04-06 23:39] LABS: Bedside Glucose 82 mg/dL (74-106)
[2023-04-07 04:43] VITALS: BP 127/67; PULSE 73; RESP 16; TEMP 36.5
--- NOTE | 2023-04-07 07:27 | PCM.PN.OB ---
Subjective Subjective Patient doing well without complaints. Tolerating PO. Ambulating and voiding without difficulty. feeding well. Denies chest pain, shortness of breath, calf pain/swelling, fevers, chills, lightheadedness. Objective Data Objective Data Vital Signs: Vital Signs Temp Pulse Resp BP Pulse Ox O2 Del Method 97.7 F L 73 16 127/67 H 97 Room Air 04/07/23 04:43 04/07/23 04:43 04/07/23 04:43 04/07/23 04:43 04/06/23 20:20 04/07/23 04:43 Oxygen Delivery Method Room Air Weight: 265 lb 12.8 oz Body Mass Index (BMI) 41.6 Intake & Output: Intake and Output for Last 24 Hours 04/05/23 04/06/23 04/07/23 23:59 23:59 23:59 Intake Total 3877.59 / 3877.59 1000 / 1000 Output Total 1750 / 2250 1100 / 1100 Balance 2127.59 / 1627.59 -100 / -100 Lab / Micro Data 04/03/23 19:35 Labs: Laboratory Results - last 24 hr 04/06/23 12:24: POC Glucose 132 H 04/06/23 23:21: POC Glucose 82 ROS Constitutional Constitutional: Reports systems reviewed and no addt'l complaints, except as documented Cardiovascular Cardiovascular: Reports systems reviewed and no addt'l complaints, except as documented Respiratory/Chest Respiratory/Chest: Reports systems reviewed and no addt'l complaints, except as documented Gastrointestinal Gastrointestinal: Reports systems reviewed and no addt'l complaints, except as documented Physical Exam Const alert, oriented x3 and no apparent distress HEENT Head and Scalp: atraumatic Resp normal respiratory effort GI soft to palpation and non-tender Bimanual Exam - Vag & Uterus: uterus non-tender Uterus Palpation: uterus fundus firm (below Umbilicus) Assessment & Plan (1) Vaginal delivery: (2) Gestational diabetes mellitus (GDM): QUALIFIERS: Gestational diabetes mellitus control: unspecified Trimester: third trimester Qualified Code(s): O24.419 - Gestational diabetes mellitus in , unspecified control COMMENT: metformin, IOL 39. NSTs twice weekly starting at 32 weeks, US at 32 and 36 weeks 32 and 36 wk nl growth (3) Stressful life event affecting family: COMMENT: Her mother passed from uterine cancer mets to bone 11/23. Enc counseling. RTO 2 wk (4) History of anxiety: COMMENT: counseling encouraged. not currently on medication:declines today PLAN: Plan s/p PPD # 2 1. routine post delivery care 2. breast feeding- support given 3. rh positive 4. rubella immune
[2023-04-07] MEDS: metFORMIN HCl 500 MG Tablet PO (08:48)
[2023-04-07 08:53] VITALS: BP 135/72; PULSE 83; RESP 16; TEMP 36.2; O2SAT 99
[2023-04-07 08:54] VITALS: BP 135/72; PULSE 64; PULSE 83; RESP 16; TEMP 36.2; O2SAT 99
[2023-04-07] MEDS: Naproxen 500 MG Tablet PO (09:21)
--- NOTE | 2023-04-07 10:20 | CASEMGMT ---
Social Work Assessment Labor and Delivery Unit Patient Address:[address] [place] [address] [place] [address] Phone number: [phone] Date of Referral: 04/04/23, 04/05/23 Time of Referral:? 1802 Referred By: Casi Harringtno Date of Intervention: ?04/07/23? Time of Intervention:? 929 Reason for Referral:? anxiety/ depression. Patient mother in November suddenly Anxiety, mother in 11/30 Sw completed chart review and acknowledges social work consult due to maternal history of anxiety and the recent loss of her mother unexpectedly. Sw presented to bedside and introduced self to mother of baby (MOB- Stuart) and father of baby (FOB- Farshad). Sw explained reason for sw involvement, completed psychosocial assessment and asked FOB to step out of the room briefly so that MOB could complete [place] Depression Scale. History obtained from: medical records, MOB and FOB. Household composition: Currently residing in the home is MOB, FOAshely, their dog and now baby when he is medically ready for discharge. Patient's parent/guardian status:?Parents report that they met in high school and are high school sweethearts, they have been together for 15 years. While meeting with MOB privately she denies any concerns regarding domestic violence or intimate partner violence. baby is first baby for both parents. Medical History: BRIGIDO is 28 year old, female who is currently admitted for her first / delivery. BRIGIDO is 1, para 0- now 1. BRIGIDO received routine care with [facility]. BRIGIDO delivered baby via vaginal delivery at 39 weeks gestation on 04/05/23. Baby boy, named, George Chan, was born weighing 6lb 9oz and his apgars were 8 and 9 at one and five minutes of life respectfully. BRIGIDO states that she is and it is going ok. Educational Status:?Both parents are high school graduates. BRIGIDO has her bachelors degree in nursing. YOANDY does not have any college education. Financial Status: Both parents are gainfully employed outside of the home. 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 BRIGIDO states that she will return to work for the spring. Infant Supplies:?Parents report that have all necessary supplies for baby including: car seat, safe sleep space, clothes, diapers, wipes and a breast pump. Childcare/Caregiver(s):?BRIGIDO will be primary caregiver to baby while she is on maternity leave, along with FOB when he is not at work. MOB states that when both parents have returned to work they will need a childcare provider, and this is something that they still need to work out. Transportation:?? Both parents have their drivers license and dependable means of transportation. No transportation barriers at this time. Programs/Agencies Involved: ??No linkage to community resources at this time. ? Children Services/Legal Issues:??? No former involvement, no issues or concerns warranting a referral at this time. Behavioral Health Issues: ??Mental Health History:?FOAshely denies mental health history. MOB states that she has been diagnosed with anxiety. MOB states that she was on Lexapro prior to becoming . MOB states that there was a time at work when she felt like her heart rate was extremely fast, so she checked her blood pressure and it was high. MOB states that that is the biggest reason why she started to take meds. MOB states that she is knowledgeable about the signs and symptoms of baby blues and depression/ anxiety. Lowell discussed with BRIGIDO the recent loss of her mother and how she feels she is coping. MOB states that she allows herself the opportunity to cry and process her grief when the moment presents itself. MOB states that she does not stay down and depressed however. MOB states that she has accepted this loss and knows that she can't change it, so she cries and then tries her best to move on. MOB denies any linkage to mental health counseling at this time, or historically. MOB states that she relies a lot on the natural supports that she has when she may be struggling. BRIGIDO did complete an [place] Depression Scale, her score was a 2. [place]ell educated BRIGIDO on results and provided education and support. ?? Substance Use History:?MOB denies substance use prior to or during . ? Family History:??MOB states that there is alcoholism on her father's side of the family. MOB states that they will not be childcare providers for baby.??? Drug Screens: No urine screens observed in chart review. Family/Social Stressors:? MOB denies stressors at this time. Support Systems: Both parents state that they have a lot of family and friends who are extremely supportive. Depression/Shaken Baby/Safe Sleeping: ?Sw educated parents on signs and symptoms of baby blues and depression/ anxiety. Sw encouraged parents to talk about things that FOB can do for MOB to be supportive during this period and to help her in moments when she may be struggling. Parents state that they have been together for so long and have good communication that they think they will do ok. MOB acknowledged that she may be more susceptible to experiencing symptoms due to her mental health history and due to the recent loss of her mother. Sw educated parents on shaken baby prevention and ABCs of safe sleep. Parents expressed understanding. ASSESSMENT:? MOB admitted due to delivering baby. Parents were observed to be strong supports to one another. MOB observed holding baby and providing appropriate and loving hands on care. MOB with mental health history and encouraged to get connected to mental health supports should she struggle during this period. Both parents were talkative during assessment, and were receptive to sw involvement and support. PLAN:? MOB and baby to be discharged when medically ready. ?No other services requested or indicated. Dionne Garcia, APPEALS EXAMINER, VP CLINICAL RESEARCH
[2023-04-07] MEDS: Influenza Virus Vac Quad 23-24 60 MCG/0.5 ML SYRINGE IM (11:07)
[2023-04-07 13:03] LABS: Bedside Glucose 85 mg/dL (74-106)
[2023-04-07 14:20] VITALS: BP 129/77; PULSE 85; RESP 16; TEMP 36.7; O2SAT 98
[2023-04-07 14:21] VITALS: BP 129/77; PULSE 80; PULSE 81; O2SAT 98
--- NOTE | 2023-04-07 14:33 | NURSING ---
This industrial education instructor directly observed medication administration performed by Star harris. Also the documentation completed by the student was reviewed.
== END 2023-04-07 15:15 | disposition home or self-care (01) | DRG 807 ==
LOC: WP 19:21
PROVIDERS: Registered Nurse; Admitting Provider Advanced Practice Midwife; Referring Provider Advanced Practice Midwife; Visit Provider Advanced Practice Midwife
DX: O24.425 Gestational diabetes mellitus in childbirth, controlled by oral hypoglycemic drugs (principal); Z37.0 Single live birth; E66.01 Morbid (severe) obesity due to excess calories; O76 Abnormality in fetal heart rate and rhythm complicating labor and delivery; O87.4 Varicose veins of lower extremity in the puerperium; O99.214 Obesity complicating childbirth; Z3A.39 39 weeks gestation of pregnancy
CPT/HCPCS: 36415; 59025; 59050; 82951; 82952; 82962; 85025; 86780; 86850; 86900; 86901; 99221; J7120; 90686; A4216; G0378; J2405

== ENCOUNTER → 2023-05-17 | Outpatient (CLI) | payer OTHER, SELFPAY ==
[2023-05-24 12:27] LABS: HPV Reflexed? NOT INDICATED
== END | disposition home or self-care (01) ==
LOC: LABSPEC 16:23
PROVIDERS: Referring Provider Obstetrics & Gynecology; Visit Provider Obstetrics & Gynecology
DX: Z12.4 Encounter for screening for malignant neoplasm of cervix (principal)
CPT/HCPCS: 88175; G0145

== ENCOUNTER → 2025-02-01 | Outpatient (CLI) | payer OTHER, SELFPAY ==
[2025-02-05 04:07] LABS: Chlamydia By Nucleic Acid AMP Negative (Negative); Gonococcus By Nucleic Acid AMP Negative (Negative)
== END | disposition home or self-care (01) ==
LOC: LABSPEC 14:47
PROVIDERS: Referring Provider Registered Nurse; Visit Provider Registered Nurse
DX: O09.90 Supervision of high risk pregnancy, unspecified, unspecified trimester (principal); Z3A.00 Weeks of gestation of pregnancy not specified
CPT/HCPCS: 87086; 87088; 87491; 87591

== ENCOUNTER → 2025-02-12 | Outpatient (CLI) | payer OTHER, SELFPAY ==
[2025-02-12 12:19] LABS: Hematocrit 42.2 % (37-47); Hemoglobin 14.0 g/dL (12.0-15.0); Immature Granulocytes Count 0.030 X10^3/uL (0.0-0.0); Mean Corp Hgb Conc 33.2 g/dL (32-36); Mean Corpuscular Volume 84.9 fL (81-99); Mean Platelet Vol. 9.9 fl (6.2-12.0); NRBC Flagged by Analyzer 0 % (0-5); Platelet Count 290 K/mm3 (150-450); RBC Distribution Width CV 13.8 % (11.6-14.6); RBC Distribution Width SD 42.5 fl (35.1-43.9); Red Blood Count 4.97 M/mm3 (4.2-5.4); White Blood Count 8.3 K/mm3 (4.4-11.0)
[2025-02-12 13:29] LABS: HIV Nonreactive (Nonreactive); Hepatitis B Surface Antigen Nonreactive (Nonreactive); Hepatitis C Antibody Nonreactive (Nonreactive); Syphilis Antibodies Nonreactive (Nonreactive)
== END | disposition home or self-care (01) ==
PROVIDERS: Referring Provider Registered Nurse; Visit Provider Registered Nurse
DX: O99.210 Obesity complicating pregnancy, unspecified trimester (principal); O09.299 Supervision of pregnancy with other poor reproductive or obstetric history, unspecified trimester; Z3A.08 8 weeks gestation of pregnancy; N94.89 Other specified conditions associated with female genital organs and menstrual cycle; O99.891 Other specified diseases and conditions complicating pregnancy
CPT/HCPCS: 36415; 83036; 85025; 86703; 86762; 86780; 86803; 86850; 86900; 86901; 87086; 87088; 87340

== ENCOUNTER → 2025-06-05 | Outpatient (CLI) | payer OTHER, SELFPAY ==
[2025-06-05 10:28] LABS: Hematocrit 35.9 % (37-47); Hemoglobin 12.5 g/dL (12.0-15.0); Immature Granulocytes Count 0.040 X10^3/uL (0.0-0.0); Mean Corp Hgb Conc 34.8 g/dL (32-36); Mean Corpuscular Volume 83.7 fL (81-99); Mean Platelet Vol. 9.2 fl (6.2-12.0); NRBC Flagged by Analyzer 0 % (0-5); Platelet Count 225 K/mm3 (150-450); RBC Distribution Width CV 13.2 % (11.6-14.6); RBC Distribution Width SD 40.1 fl (35.1-43.9); Red Blood Count 4.29 M/mm3 (4.2-5.4); White Blood Count 8.6 K/mm3 (4.4-11.0)
[2025-06-05 11:43] LABS: AST(SGOT) 13 U/L (<=31); Alanine Aminotransfer ALT/SGPT 11 U/L (<=34); Albumin, Serum 3.6 g/dL (3.5-5.0); Alkaline Phosphatase 84 U/L (35-104); Anion Gap 12 (5-15); BUN 7 mg/dL (4-19); BUN/Creat Ratio 12.3 RATIO (10-20); Calcium,Total 8.5 mg/dL (7.6-11.0); Carbon Dioxide 21.5 mmol/L (21.0-32.0); Chloride 104 mmol/L (98-108); Globulin 2.4 g/dL (2.2-4.2); Glucose 129 mg/dL (70-99); Glucose Challenge Gest 1H 50g 129 mg/dL (70-140); HIV Nonreactive (Nonreactive); Potassium 4.3 mmol/L (3.3-5.1); Syphilis Antibodies Nonreactive (Nonreactive)
== END | disposition home or self-care (01) ==
PROVIDERS: PCP Family Medicine; Referring Provider Advanced Practice Midwife; Visit Provider Advanced Practice Midwife
DX: O09.91 Supervision of high risk pregnancy, unspecified, first trimester (principal); Z3A.00 Weeks of gestation of pregnancy not specified; O99.211 Obesity complicating pregnancy, first trimester; Z13.1 Encounter for screening for diabetes mellitus
CPT/HCPCS: 36415; 80053; 82950; 85025; 86703; 86780